=== PATIENT | female | born 1935 ===

== ENCOUNTER 2017-05-23 16:47 | Emergency (ER) | payer SELFPAY ==
[2017-05-23 17:04] VITALS: BP 150/73; PULSE 56; RESP 18; TEMP 97.9; O2SAT 97
--- NOTE | 2017-05-23 18:30 | C.PDOC ---
History Of Present Illness 81yo female, presents to the ED accompanied by her daughter, for evaluation of right sided back pain after she fell from her bed at 3AM this morning. Patient states she was attempting to go to the bathroom this morning, when she fell and landed on her right side; daughter at bedside and states she heard the "thud" this morning. Daughter states she gave the patient Motrin this morning as well as prior to arrival with improvement in pain. Patient reports a head injury but denies any loss of consciousness. She has no other medical complaints. Time Seen by Provider: 05/23/17 17:34 Chief Complaint (Nursing): Back Pain History Per: Patient History/Exam Limitations: no limitations Onset/Duration Of Symptoms: Hrs Current Symptoms Are (Timing): Still Present Quality Of Discomfort: "Pain" Pain Scale Rating Of: 8 (without medication) Additional History Per: Family (daughter) Past Medical History Reviewed: Historical Data, Nursing Documentation, Vital Signs Vital Signs: Last Vital Signs Temp 97.9 F 05/23/17 17:01 Pulse 56 L 05/23/17 17:01 Resp 18 05/23/17 17:01 BP 150/73 05/23/17 17:01 Pulse Ox 97 05/23/17 18:30 - Medical History PMH: Arthritis (left knee) Surgical History: No Surg Hx Family History: States: No Known Family Hx - Social History Hx Alcohol Use: No Hx Substance Use: No - Immunization History Hx Tetanus Toxoid Vaccination: No Hx Influenza Vaccination: No Hx Pneumococcal Vaccination: No Review Of Systems Except As Marked, All Systems Reviewed And Found Negative. Musculoskeletal: Positive for: Back Pain (right sided) Neurological: Positive for: Other (head injury. no loss of consciousness) Physical Exam - Physical Exam Appears: Non-toxic, No Acute Distress Skin: Normal Color, Warm, Dry, No Ecchymosis Head: Atraumatic, Normacephalic, No Tenderness Eye(s): bilateral: Normal Inspection Neck: No Midline Cervical Tenderness, Paracervical Tenderness (right), Supple Chest: Symmetrical Cardiovascular: Rhythm Regular Respiratory: Normal Breath Sounds Back: No CVA Tenderness, No Vertebral Tenderness, Paraspinal Tenderness (right) , Other (right scapular tenderness) Extremity: Normal ROM, No Deformity Neurological/Psych: Oriented x3, Normal Speech, Normal Cognition ED Course And Treatment O2 Sat by Pulse Oximetry: 97 (RA) Pulse Ox Interpretation: Normal Progress Note: XR T-Spine and C-Spine ordered. Disposition Counseled Patient/Family Regarding: Diagnosis, Need For Followup - Disposition Referrals: [facility] at [facility] [Outside] Disposition: HOME/ ROUTINE Disposition Time: 19:00 Condition: STABLE Additional Instructions: FOLLOW UP WITH YOUR DOCTOR IN 1-2 DAYS USE IBUPROFEN NEEDED FOR PAIN RETURN TO ER IF SYMPTOMS WORSEN Prescriptions: Ibuprofen [Motrin Tab] 600 mg PO Q6 PRN #30 tab PRN Reason: fever/pain Instructions: Upper Back Pain Forms: [employer] (Tunisian) Print Language: NIGERIEN - POA Present On Arrival: Falls Or Trauma - Clinical Impression Clinical Impression: Thoracic back pain, Thoracic back sprain - Scribe Statement The provider has reviewed the documentation as recorded by the Scribe (Yocasta Christianson) Provider Attestation: All medical record entries made by the Scribe were at my direction and personally dictated by me. I have reviewed the chart and agree that the record accurately reflects my personal performance of the history, physical exam, medical decision making, and the department course for this patient. I have also personally directed, reviewed, and agree with the discharge instructions and disposition.
--- NOTE | 2017-05-24 08:04 | RAD ---
Thoracic spine two views History: Back pain. Comparison: None available. Findings: Prominent paravertebral osteophyte formation in the upper lumbar spine. Degenerative changes in the thoracic spine with disc space narrowing and anterior osteophytosis. Chronic interstitial lung markings. Impression: Degenerative changes. If pain persists, or there is concern for acute osseous injury, consider further evaluation with MRI.
== END 2017-05-23 19:26 | disposition home or self-care (01) ==
LOC: C.ER 16:47
DX: S23.3XXA Sprain of ligaments of thoracic spine, initial encounter (principal); W06.XXXA Fall from bed, initial encounter; M54.6 Pain in thoracic spine

== ENCOUNTER 2017-06-08 17:02 | Emergency (ER) | payer SELFPAY ==
[2017-06-08 17:17] VITALS: BMI 29.2
[2017-06-08 17:21] VITALS: O2SAT 95
--- NOTE | 2017-06-08 18:48 | C.PDOC ---
History Of Present Illness Patient is 81 y/o male who presents to the ED with a complaint of pain to the right ribs and mid axillary line when coughing. Patient reports to have fallen last wekk on the stairs and was seen in [facility]; patient received unremarkable thoracic spine films. She returns to ED today due to a "ripping sensation" felt when coughing. Denies any SOB, dizziness, nausea, vomiting, fever, chills, abdominal pain, headache, or neck pain. Patient has no other physical complaints at this time. Time Seen by Provider: 06/08/17 17:47 Chief Complaint (Nursing): Medical Clearance History Per: Patient History/Exam Limitations: no limitations Onset/Duration Of Symptoms: Days (1 week) Current Symptoms Are (Timing): Still Present Reports Recently: Seen In ED Recent travel outside of the [place]: No Past Medical History Reviewed: Historical Data, Nursing Documentation, Vital Signs Vital Signs: Last Vital Signs Temp 98.6 F 06/08/17 17:17 Pulse 66 06/08/17 17:17 Resp 18 06/08/17 17:17 BP 134/77 06/08/17 17:17 Pulse Ox 95 06/08/17 18:54 - Medical History PMH: Arthritis (left knee), Hypercholesterolemia Surgical History: No Surg Hx Family History: States: No Known Family Hx - Social History Hx Tobacco Use: No Hx Alcohol Use: No Hx Substance Use: No - Immunization History Hx Tetanus Toxoid Vaccination: No Hx Influenza Vaccination: No Hx Pneumococcal Vaccination: No Review Of Systems Constitutional: Negative for: Fever, Chills Cardiovascular: Positive for: Chest Pain (right ribs, mid axillary line) Respiratory: Negative for: Shortness of Breath Gastrointestinal: Negative for: Nausea, Vomiting, Abdominal Pain Musculoskeletal: Negative for: Neck Pain Neurological: Negative for: Headache, Dizziness Physical Exam - Physical Exam Appears: Non-toxic Head: Atraumatic, Normacephalic Oral Mucosa: Moist Neck: No Midline Cervical Tenderness, Supple Chest: No Tenderness (negative to lateral right ribs) Cardiovascular: Rhythm Regular, No Murmur Respiratory: Normal Breath Sounds, No Rales, No Wheezing Back: No Vertebral Tenderness (negative to thoracic spine), No Paraspinal Tenderness ED Course And Treatment O2 Sat by Pulse Oximetry: 95 Medical Decision Making Medical Decision Making: Ribs and Chest XR ordered. Disposition Counseled Patient/Family Regarding: Studies Performed, Diagnosis, Need For Followup - Disposition Referrals: [facility] [Outside] Disposition: HOME/ ROUTINE Disposition Time: 18:57 Condition: STABLE Prescriptions: Acetaminophen [Tylenol Extra Strength] 1,000 mg PO BID #12 tablet Instructions: Bruised Rib Forms: Gen Discharge Inst Arabic, [facility] (Arabic) - POA Present On Arrival: None - Clinical Impression Clinical Impression: Contusion of rib on right side - Scribe Statement The provider has reviewed the documentation as recorded by the Scribe Marcelina Jenkins All medical record entries made by the Scribe were at my direction and personally dictated by me. I have reviewed the chart and agree that the record accurately reflects my personal performance of the history, physical exam, medical decision making, and the department course for this patient. I have also personally directed, reviewed, and agree with the discharge instructions and disposition.
[2017-06-08 19:25] VITALS: BP 128/66; PULSE 67; RESP 20; TEMP 98
--- NOTE | 2017-06-09 08:52 | RAD ---
PROCEDURE: Radiographs of the Chest and Right Ribs. HISTORY: fall, right ib pain COMPARISON: None available. TECHNIQUE: Frontal radiograph of the chest and multiple oblique radiographs of the right ribs were obtained. FINDINGS: RIGHT RIBS: No fracture or focal lesion visualized. LUNGS: Minimal linear scar/ atelectasis at lateral left lung base. PLEURA: No pneumothorax or pleural fluid. CARDIOVASCULAR: Normal sized heart. No pulmonary vascular congestion. OTHER FINDINGS: Lumbar levoscoliosis. IMPRESSION: No evidence of right rib fracture. No pulmonary infiltrate.
== END 2017-06-08 19:25 | disposition home or self-care (01) ==
LOC: C.ER 17:02
DX: S20.211A Contusion of right front wall of thorax, initial encounter (principal); W10.9XXA Fall (on) (from) unspecified stairs and steps, initial encounter; E78.00 Pure hypercholesterolemia, unspecified